=== PATIENT | female | born 1955 | race Caucasian/White ===

== ENCOUNTER 2021-02-06 14:06 | Outpatient (REF) | payer OTHER, SELFPAY | END 2021-02-06 14:07 | disposition home or self-care (01) | LOC: HO.LNP 14:06 | PROVIDERS: Visit Provider Internal Medicine | DX: Z20.822 Contact with and (suspected) exposure to COVID-19 (principal); J06.9 Acute upper respiratory infection, unspecified | CPT/HCPCS: U0003; U0005 ==

== ENCOUNTER 2025-05-26 12:06 | Outpatient (AMB) | payer MEDICARE, SELFPAY ==
[2025-05-26 12:11] VITALS: BP 130/60; PULSE 87; TEMP 37; O2SAT 97; BMI 30.1
--- NOTE | 2025-05-26 12:11 | AM.OFFWIN_ITS ---
Intake Vital Signs 05/26/25 12:11 Height 5 ft 11 in Weight 216 lb BMI 30.1 BP 130/60 Blood Pressure Location Lt brachial Position Sitting Pulse 87 Pulse Source Pulse Oximeter Temp 98.6 F Temp Source Oral Pulse Oximetry (%) 97 Oxygen Delivery Method Room Air Intake Visit Reasons: EP SOB, Cough, Rib discomfort Intake Note: pt presents with chest congestion and coughing so much that she has rib pain, body sweats, headache off/on, SOB x5 days. Covid test negative 3 days ago Patient Tobacco Use Status: Former Tobacco user Allergies codeine Allergy (Mild, Verified 05/26/25 12:14) rash HPI HPI Comments History of Present Illness Details Patient is a 69yo F who presents with cold symptoms Started last with post nasal drip and congeston Thursday she had fatigue Symptoms worsening Thursday/thursday to body aches, fatigue, cough and congestion Negative covid test at home Yesterday felt better but worse today + subjective fever/chills + congestion with cough (dry) Has tried Mucinex DM, Alkaseltzer without relief + rib pain located on R side but all ove r, worsened with cough + body aches and fatigue still No nausea/vomiting but + decreased appetite + staying hydrated but probably not as much as she should No sick close contacts PFSH Social History Patient Tobacco Use Status: Former Tobacco user Review of Systems Const Reports chills, Reports fatigue, Reports fever(s) and Reports poor appetite Eyes Denies change in vision ENT Denies dizziness, Denies otalgia, Reports nasal congestion and Reports sore throat Card Denies chest pain and Denies syncope Resp Denies change in phlegm color, Reports chest congestion, Reports cough and Reports pain with cough (R side worse, but overall ache) GI Denies abdominal pain and Denies vomiting Musc Reports myalgias Skin/Breast Denies rash Neuro Denies dizziness and Denies syncope Endo Reports fatigue Physical Exam Exam Exam: General: Non-toxic, NAD. Speaking full sentences. Skin: Warm dry throughout Eye: EOMI HENT: Airway patent. Uvula midline. No pharyngeal erythema or edema. 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 +rhinorrhea Bilateral canals clear. TM non-erythematous, non-bulging. No TM perforation or hemotympanum noted. Respiratory: No respiratory distress or stridor. No accessory muscle use. + Crackles R base. No wheeze noted bilaterally Cardiac: RRR. No murmur MSK: Full ROM extremities. Neurology: Alert. No aphasia or facial droop. Gait without abnormality Psych: Good mood and affect Vital Signs: Last Vital Signs Temp 98.6 F 05/26/25 12:11 Pulse 87 05/26/25 12:11 BP 130/60 05/26/25 12:11 Pulse Ox 97 05/26/25 12:11 Oxygen Delivery Method Room Air 05/26/25 12:11 BMI result Body Mass Index 30.1 Assessment & Plan Assessment & Plan (1) Cough: Code(s): R05.9 - Cough, unspecified Qualifiers: Cough type: acute Qualified Code(s): R05.1 - Acute cough Plan: see below (2) Pneumonia: Code(s): J18.9 - Pneumonia, unspecified organism Qualifiers: Pneumonia type: due to unspecified organism Laterality: right Lung location: lower lobe of lung Qualified Code(s): J18.9 - Pneumonia, unspecified organism Plan: Patient seen and evaluated. Vital signs stable Lungs + crackles r base Was going to obtain xray but radiology on break for another 30 minutes Pt did not want to wait or come back for imaging Will tx patient based on clinical physical exam Doxy to pharmacy to take with food avoiding alcohol Rest, tylenol/motrin for fever and body ache control Discussed worsening s/s that warrant ER evaluation Patient gave verbal understanding and had no additional questions or concerns at time of discharge All questions answered Medications: New doxycycline hyclate 100 mg PO BID 20 caps 0RF benzonatate 100 mg PO BID-TID PRN 15 caps 0RF cough Coding Level of Care Code Est Pt Level 3 (80640) Diagnoses Acute cough R05.1 Cough type: acute Pneumonia of right lower lobe due to infectious organism J18.9 Pneumonia type: due to unspecified organism Laterality: right Lung location: lower lobe of lung
--- OUTSIDE RECORDS SUMMARY | 2025-05-26 14:09 | XMS_ITS | Clinical Summary ---
Author Organization [facility] Address [address] [place] [id number] Phone Care Team Providers Care Reimbursement Manager Name Role Phone Florencio Crowell MD Primary Care Provide r Allergies Active Allergy Reactions Criticality Noted Date Comments Codeine 10/24/2019 Medications LISINOPRIL ORAL Take by mouth. Active metformin HCl (METFORMIN ORAL) Take by mouth. Active oxyCODONE 5 MG immediate release tablet Take 1 tablet (5 mg total) by mouth every 6 (six) hours as needed for pain (specific location in comments). Partial fill ok 5 tablet 10/24/2019 Active Social History Tobacco Use Types Packs/Day Years Used Date Smoking Tobacco: Former Smokeless Tobacco: Never Alcohol Use Standard Drinks/Week Comments Not Currently 0 (1 standard drink = 0.6 oz pur e alcohol) Education Answer Date Recorded Are you interested in more education? Not on lisa e 10/03/2022 Are you concerned about learning? Not on file 10/03/2022 No 10/03/2022 No 10/03/2022 Digital Access Answer Date Recorded No 11/04/2022 No 11/04/2022 Reliable internet access at home? Not on file 11/04/2022 Device with a working camera? Not on file Comments Unknown Sex and Gender Information Value Date Recorded Sex Assigned at Female 10/24/2019 10:51 AM EDT Legal Sex Female 10:39 AM EDT Gender Identity Female 10/24/2019 10:51 AM EDT Sexual Orientation Not on file Last Filed Vital Signs Vital Sign Reading Time Taken Comments Blood Pressure 152/75 10/24/2019 11:15 AM EDT Pulse 81 10/24/2019 10:46 AM EDT Temperature 36.7 C (98.1 F) 10/24/2019 10:46 AM EDT Respiratory Rate 20 10/24/2019 10:46 AM EDT Oxygen Saturation 100% 10/24/2019 11:15 AM EDT Inhaled Oxygen Concentration - - Weight 93.4 kg (206 lb) 10/24/2019 10:46 AM EDT Height 180.3 cm (5' 11 ) 10/24/2019 10:46 AM EDT Body Mass Index 28.73 10/24/2019 10:46 AM EDT Plan of Treatment Not on file Medical Devices Not on file Insurance [facility] [address] [place] [id number] [address] [place], [place] [id number] [employer] Care Teams Reimbursement Manager Relationship Specialty Start Date End Date Florencio Crowell MD PCP - General Internal Medicine 10/24/19 Additional Source Comments The information contained in this document represents components of the legal health record. It is not the complete legal health record.[facility]
--- OUTSIDE RECORDS SUMMARY | 2025-05-26 14:09 | XMS_ITS | Clinical Summary ---
Author Organization [address] Address [address] [place] [id number] Phone Care Team Providers Care Refrigeration Brazer/Solderer Name Role Phone Napoleon Orona MD Primary Care Provider Unavailabl e Allergies No known active allergies Medications HYDROmorphone (DILAUDID) 2 MG tablet Take 0.5 tablets (1 mg total) by mouth every 4 (four) hours as needed. for up to 6 doses. 6 tablet 11/23/2017 Active Social History Tobacco Use Types Packs/Day Years Used Date Smoking Tobacco: Never Smokeless Tobacco: Never Alcohol Use Standard Drinks/Week Comments No 0 (1 standard drink = 0.6 oz pur e alcohol) Comments Unknown Sex and Gender Information Value Date Recorded Sex Assigned at Not on file Legal Sex Female 7:11 PM EST Gender Identity Not on file Sexual Orientation Not on file Last Filed Vital Signs Vital Sign Reading Time Taken Comments Blood Pressure 125/77 11/23/2017 6:56 PM EDT Pulse 78 11/23/2017 6:56 PM EDT Temperature 36.3 C (97.3 F) 11/23/2017 6:56 PM EDT Respiratory Rate 17 11/23/2017 6:56 PM EDT Oxygen Saturation 100% 11/23/2017 6:56 PM EDT Inhaled Oxygen Concentration - - Weight 88.9 kg (196 lb) 11/23/2017 3:22 PM EDT Height 180.3 cm (5' 11 ) 11/23/2017 3:22 PM EDT Body Mass Index 27.34 11/23/2017 3:22 PM EDT Plan of Treatment Health Maintenance Due Date Last Done Comments HIV screening 12/26/1968 Hepatitis C screening 12/26/1973 Breast cancer screening 1995 Lipid disorder screening 1995 Colon cancer screening, Colonoscopy 12/26/2000 Diabetes screening 12/26/2000 Shingles vaccine (Shingrix) (1 of 2 - Shingrix (RZV) 2 Dose Standard Series) 12/26/2005 Pneumococcal Vaccine (50+ years) (2 of 2 - PCV) 02/10/2013 02/11/2012 Osteoporosis screening (bone density) 12/26/2020 Tetanus adult (Td q 10,TDAP once) 01/03/2021 01/03/2011, 06/19/2005 Influenza vaccine 01/06/2025 05/26/2017, , 03/29/2014, Additional history exists Covid-19 vaccine series ( - 2024- season) 2025 RSV Immunization (1 - 1-dose 75+ series) 12/26/2030 Cervical cancer screening Discontinued Meningococcal B Vaccine Aged Out No l onger eligible based on patient's age to complete this topic Meningococcal Vaccine Aged Out No shailesh yang eligible based on patient's age to complete this topic Insurance [employer] Care Teams Refrigeration Brazer/Solderer Relationship Specialty Start Date End Date Napoleon Orona MD PCP - General 11/22/17
== END 2025-05-26 12:53 | disposition home or self-care (01) ==
PROVIDERS: PCP Nurse Practitioner Family; Visit Provider Physician Assistant
DX: R05.1 Acute cough (principal); J18.9 Pneumonia, unspecified organism

== ENCOUNTER 2025-05-26 12:06 | Outpatient (REF) | payer MEDICARE, SELFPAY ==
--- OUTSIDE RECORDS SUMMARY | 2025-05-26 16:33 | XMS_ITS | Data Portability ---
Author Organization [facility] [employer] [facility], [facility] Address [address] [place] [address] Care Team Providers [facility] Director Name Role Phone DOMINGUEZ WALLS Referring Provider DOMINGUEZ WALLS Primary Care Provider Assessment Encounter Date Assessment Date Assessment LastModified by Organization Details LastModified Time 08/03/2024 08/03/2024 Assessment: Patient w some decreased rom today, decreased c/o's after STM to HS. Modified treatment per c/o's Plan: Continue to progress rom and LE strengthening as starla. STM prn Not available 08/03/2024 11:36:31 08/08/2024 08/08/2024 Assessment: Patient demonstrates increased AAROM today vs last visit-held on most strengthening today. Plan: Continue to progress rom and LE strengthening as starla-pt to call PAKrzysztof lozoya Not available 08/08/2024 10:56:00 08/10/2024 08/10/2024 Assessment: Patient demonstrates increased AAROM today vs last visit-held on most strengthening today. Plan: Continue to progress rom and LE strengthening as starla-pt to call PAKrzysztof lozoya Not available 08/09/2024 16:26:52 08/16/2024 08/16/2024 Assessment: Patient achieved ROM p/o goals, good functional status, normal stairs, goals achieved, happy w status, good understanding HEP Plan: D/c to HEP Not available 08/16/2024 10:46:52 10/13/2024 10/13/2024 PROBLEM: Status post Left total knee arthroplasty performed on 07/01/24 HPI: Patient returns today for follow-up of their total knee arthroplasty. They report they have returned to most activities of daily living. The patient has no specific concerns today in the office. They have completed outpatient physical therapy. Past family, medical, social history and review of systems has been reviewed, updated and is located in the patient s chart. EXAM: The patient ambulates with a non-antalgic gait. The surgical wound is well-healed. There is no erythema, redness, or signs of infection. Left knee range of motion 0-130 . There is no significant sub-patellar crepitus. There is expected postoperative swelling but no significant effusion. The knee is stable to varus and valgus loading at 0 and 90 without evidence of significant instability. IMAGING: Previously obtained X-rays reviewed in the office today on [facility] PACS: Weightbearing AP of both knees, lateral of the left knee, and sunrise view of both knees demonstrate; Show appropriate position of the patient's left total knee arthroplasty. Overall limb alignment is neutral. Implant position is satisfactory. Patellar tracking is midline. Bone implant interfaces are intact and no evidence of fracture or osteolysis IMPRESSION: Status post Left total knee arthroplasty PLAN: At this point, the patient is doing extremely well following their total knee arthroplasty. I encouraged them to continue a home exercise and walking program. We discussed activity modification, dental prophylaxis, and the importance of long-term follow-up. I encouraged them to return to the office periodically for routine follow-up; sooner if any issues arise. I attempted to answer all of their questions today in the office. [facility] speech recognition analyst business analysis software was used to create portions of this document. An attempt at proofreading has been made to minimize errors. Please call for corrections. [email or web address] Not available 10/13/2024 10:49:00 Plan of Treatment Reminders Order Date Submit Date Provider Last Modified By Organization Details Last Modified Time Details Appointments None record ed. Lab None record ed. Referral None record ed. Procedures None record ed. Surgeries None record ed. Imaging None record ed. Medication Orders None record ed. Patient TargetsNo targets recorded. Patient InstructionsNo instructions recorded. Reason for Referral None Reported. Results Created Date Observation Date Name Description Value Unit Range Abnormal Flag Note LastModifiedBy Organization Detail LastModifiedTime 07/14/19 25 07/14/2024 XR, knee, 3 view http:/ [email or web address] ?Encry pted=s hAaTro YD8dLq bEUv6g %2BXZw aYqtaq 0bqfl% 2Fg9IQ a4ajBk vP9nXo QUaueC m3YtLR FvZlgJ JJ8mAn HZtai3 9o0279 AC0Kqb HiBWKq vKiQtr MwF INTERFACE [facility] [address], [place], [address], 07/14/2024 15:47:25 07/14/19 25 07/14/2024 XR, knee, 3 view http:/ [email or web address] ?Encry pted=s hAaTro YD8dLq bEUv6g %2BXZw aYqtaq 0bqfl% 2Fg9IQ a4ajBk vP9nXo QUaueC m3YtLR FvZlgJ JJ8mAn HZtai3 2v3067 AC0Kqb HiBWKq vKiQtr MwF INTERFACE [facility] [address], [place], [address], 07/14/2024 15:47:27 Result Notes None recorded. Problems Name Problem SNOMED Code Status Onset Date Resolution Date Notes Provider Name and Address Organization Details Recorded Time Pain of left knee joint 858403263161 107 Active 2020 Problem Code: M25.562; Problem Code Type: ICD-10; Status: 'A'; Not Available [facility] 4 10:56:55 Pain of right knee joint 625264818109 100 Active 2020 Problem Code: M25.561; Problem Code Type: ICD-10; Status: 'A'; Not Available [facility] 4 10:56:55 Pain in right foot 876164026131 107 Active 2023 Riaz Ontiveros PA-C [address], [place], [address] , [place] - [facility] 4 13:49:13 Closed fracture of fifth metatarsa l bone 55330809 Active 2023 Riaz Ontiveros PA-C [address], [place], [address] , [facility] 4 14:19:58 Osteoarth ritis of left knee joint 820020834990 109 Active 2023 Andrea Lopez MD [address], [place], [address] , [facility] 4 06:19:01 Trochante izzy bursitis of left hip 091100284614 103 Active 2023 Andrea Lopez MD [address], [place], [address] , [facility] 4 14:58:58 Problem Notes None recorded. Procedures Surgical History Date Name Laterality Status Provider Name and Address Organization Details Recorded Time 5 29190 Therapeutic Exercise (1:1) completed Luciano Scott, PT [address], [place], [address], [facility] 08/14/2024 17:46:35 5 35116: Manual therapy completed Luciano Scott, PT [address], [place], [address], [facility] 08/14/2024 17:46:35 5 87526 Therapeutic Exercise (1:1) completed Romy Jose PTA [address], [place], [address], [facility] 08/10/2024 11:55:24 5 67049: Manual therapy completed Romy Jose PTA [address], [place], [address], [facility] 08/10/2024 11:55:16 5 37308 Therapeutic Exercise (1:1) completed Romy Jose PTA [address], [place], [address], [facility] 08/05/2024 09:15:26 5 71187: Manual therapy completed Romy Jose, NIGHT WORKER [address], [place], [address], [facility] 08/05/2024 09:15:26 5 72007 Therapeutic Exercise (1:1) completed Luciano Sampsonser, PT [address], [place], [address], [facility] 08/03/2024 11:37:05 5 18389: Manual therapy completed Luciano Sampsonser, PT [address], [place], [address], [facility] 08/03/2024 11:36:36 5 02678 Therapeutic Exercise (1:1) completed Luciano Sampsonser, PT [address], [place], [address], [facility] 07/29/2024 11:56:03 5 31986: Manual therapy completed Luciano Sampsonser, PT [address], [place], [address], [facility] 07/29/2024 11:56:03 5 32183 Therapeutic Exercise (1:1) completed Romy Jose, NIGHT WORKER [address], [place], [address], [facility] 07/29/2024 10:49:37 5 29640: Manual therapy completed Romy Jose, NIGHT WORKER [address], [place], [address], [facility] 07/28/2024 18:32:46 5 07203 Therapeutic Exercise (1:1) completed Romy Jose, NIGHT WORKER [address], [place], [address], [facility] 07/26/2024 18:10:48 5 74638: Manual therapy completed Romy Jose, NIGHT WORKER [address], [place], [address], [facility] 07/26/2024 18:10:48 5 64186 Therapeutic Exercise (1:1) completed Romy Jose, NIGHT WORKER [address], [place], [address], [facility] 07/20/2024 12:08:43 5 92140: Manual therapy completed Romy Jose, NIGHT WORKER [address], [place], [address], [facility] 07/19/2024 18:08:42 5 36373 Therapeutic Exercise (1:1) completed Romy Jose, NIGHT WORKER [address], [place], [address], [facility] 07/18/2024 11:44:04 5 21900: Manual therapy completed Romy Jose, NIGHT WORKER [address], [place], [address], [facility] 07/18/2024 11:43:59 5 32288 Therapeutic Exercise (1:1) completed Luciano Scott, PT [address], [place], [address], [facility] 07/10/2024 11:38:13 5 47526: Low complexity PT Eval completed Luciano Scott, PT [address], [place], [address], [facility] 07/10/2024 11:38:18 5 G8417 BMI Above Upper Parameters, F/U Documented completed Luciano Scott, PT [address], [place], [address], [facility] 07/11/2024 11:06:52 5 G8427 Current Medication Documented completed Luciano Scott, PT [address], [place], [address], [facility] 07/11/2024 11:07:00 4 Sports Knee 4&1 completed Satnam Canela PA-C [address], [place], [address], [facility] 03/15/2024 21:44:01 4 Knee Kenalog 40mg 2cc Injection, L/R completed Satnam Canela PA-C [address], [place], [address], [facility] 10/20/2023 20:59:53 Imaging Results None recorded. Procedure Notes None recorded. Medical Equipment None Reported. Allergies Allergen ID Allergen Name Allergen Category Reaction Reaction Severity Criticality Documentation Date Start Date Code Code System Note Provider Name and Address Organization Details Recorded Time 836979 codeine medicatio n Not available Not available Not available 12/01/20232023 2670 RxNorm Not Available [facility] 4 09:09:34 78079 Lyrica medicatio n Not available Not available Not available 08/10/20232020 60488 1 RxNorm Not Available [facility] 4 11:38:58 48577 acetamino phen / codeine medicatio n Not available Not available Not available 08/10/20232022 00711 9 RxNorm Lindsey Yan PA-C [address], [place], [address], [facility] 5 16:10:42 83217 lactose Not available Not available Not available Not available 08/10/20232020 6211 RxNorm Not Available [facility] 4 11:38:58 Medications Name Sig Start Date Stop Date Status Note LastModified by Organization Details LastModified Time celecoxib 200 mg capsule TAKE 1 CAPSULE BY MOUTH EVERY DAY 10/13 completed Not Available Not Available Not Available amoxicillin 500 mg capsule TAKE 4 CAPSULES BY MOUTH 1 HOUR BEFORE APPOINTME NT 10/13 completed Not Available Not Available Not Available atorvastati n 20 mg tablet TAKE 1 TABLET BY MOUTH EVERY DAY active Not Available Not Available No t Available tizanidine 4 mg tablet TAKE 1 TABLET EVERY 8 HOURS BY ORAL ROUTE NEEDED, FOR SPASMS. 10/13 completed Not Available Not Available Not Available glipizide ER 10 mg tablet, extended release 24 hr TAKE 1 TABLET BY MOUTH EVERY DAY IN THE MORNING AFTER STOPPING TRULICITY 10/13 completed Not Available Not Available Not Available lisinopril 20 mg tablet TAKE 1 TABLET DAILY active Not Available Not Available No t Available sumatriptan 50 mg tablet TAKE 1 TABLET AT ONSET OF HEADACHE (MAY REPEAT IN 2 HOURS IF RESPONSE UNSATISFA CTORY) NEEDED active Not Available Not Available No t Available amlodipine 5 mg tablet TAKE 1 TABLET DAILY active Not Available Not Available No t Available aspirin 81 mg tablet,ximena yed release active Not Available Not Available Not Available tramadol 50 mg tablet TAKE 1 TABLET EVERY 6 HOURS BY ORAL ROUTE AFTER MEAL(S). 10/13 completed Not Available Not Available Not Available pantoprazol e 20 mg tablet,ximena yed release TAKE 1 TABLET BY MOUTH DAILY. active Not Available Not Available No t Available aspirin 325 mg tablet,ximena yed release TAKE 1 TABLET BY MOUTH TWICE A DAY AFTER SURGERY 10/13 completed Not Available Not Available Not Available pantoprazol e 40 mg tablet,ximena yed release TAKE 1 TABLET BY MOUTH EVERY DAY PRE-OP START DAY OF SURGERY 10/13 completed Not Available Not Available Not Available pseudoephed rine-guaife nesin ER 80-700 mg tablet,exte nded release 1/2 TO 1 TAB EVERY 12 HRS PRN PAIN.DO NOT DRIVE WHILE ON THIS MEDICATIO N 09/23 completed Statu s: 'Disc ontin ued'; Not Available Not Available Not Available hydroxyzine HCl 25 mg tablet TAKE 1 TABLET BY MOUTH TWICE A DAY NEEDED FOR ANXIETY active Not Available Not Available No t Available pioglitazon e 30 mg tablet TAKE 1 TABLET BY MOUTH EVERY DAY active Not Available Not Available No t Available celecoxib 100 mg capsule TAKE 1 CAPSULE BY MOUTH EVERY DAY NEEDED 2024 active Not Available Not Available Not Avai lable metformin ER 500 mg tablet,exte nded release 24 hr TAKE 2 TABLETS TWICE A DAY active Not Available Not Available No t Available clotrimazol e 1 % topical cream APPLY TO AFFECTED AREA TWICE A DAY FOR 7 DAYS 10/13 completed Not Available Not Available Not Available amoxicillin 875 mg-felicinao pierce clavulanate 125 mg tablet TAKE 1 TABLET BY MOUTH 2 TIMES A DAY FOR 7 DAYS 10/13 completed Not Available Not Available Not Available oxycodone 5 mg tablet Take 1 tablet 4 times a day by oral route for 7 days, for severe pain. 10/13 completed Not Available Not Available Not Available duloxetine 30 mg capsule,del ayed release TAKE 1 CAPSULE BY MOUTH DAILY AT SUPPER, TAKE IN ADDITION TO 60MG IN THE MORNING 10/13 completed Not Available Not Available Not Available duloxetine 60 mg capsule,del ayed release TAKE 1 CAPSULE BY MOUTH DAILY IN AM, TAKE IN ADDITION TO 30MG IN THE EVENING active Not Available Not Available No t Available pantoprazol e 10/13 completed Not Available Not Available Not Available diclofenac 1 % topical gel APPLY 1 TO 3 GRAMS TOPICALLY TO THE AFFECTED AREA 3 TO 4 TIMES DAILY FOR PAIN DIRECTED. 10/13 completed Not Available Not Available Not Available oxycodone HCl-oxycodo ne-ASA Take one tablet every 6 hours as needed for painDO NOT DRIVE WHILE TAKING THIS MEDICATIO N 10/13 completed Statu s: 'Curr ent'; Not Available Not Available Not Available Gavilax 17 gram/dose oral powder TAKE 17 GRAMS MIXED WITH WATER AT BEDTIME 10/13 completed Not Available Not Available Not Available Trulicity 1.5 mg/0.5 mL subcutaneou s pen injector INJECT 1 PEN SUBCUTANE OUSLY WEEKLY 10/13 completed Not Available Not Available Not Available Ozempic 1 mg/dose (4 mg/3 mL) subcutaneou s pen injector INJECT 1 MG SUBCUTANE OUSLY EVERY WEEK,X90 DAYS active Not Available Not Available No t Available Ozempic 0.25 mg or 0.5 mg (2 mg/3 mL) subcutaneou s pen injector INJECT 0.5 MG SUBCUTANE OUSLY EVERY 7 DAYS,X30 DAYS 10/13 completed Not Available Not Available Not Available Vitals Date Recorded Body height Body mass index (BMI) Body weight Provider Name and Address Organization Details Last Updated DateTime 10/13/2024 177.8 cm 32.9 kg/m2 541148.65 g Krishna Pelaezfritz [place] - [facility] 10/13/2024 10:39:41 Social History None recorded. Functional Status None recorded. Mental Status None recorded. Family History Nothing Reported. Medical History Condition Response Diabetes Y Anxiety/Depression Y Bleeding Disorder Y Arthritis Y Sleep Apnea Y Gastrointestinal Disease Y Headaches Y Hypertension Y Cholesterol Y Gynecological HistoryNo gynecological history recorded. Obstetrics History GPAL:G 0 P 0 0 0 0 Past Encounters Encounter ID Performer Location Encounter Start Date Encounter Closed Date Diagnosis/Indication Diagnosis SNOMED-CT Code Diagnosis ICD10 Code Diagnosis IMO Codes Diagnosis Note [id number] MD Woo Pascual [address] [place] [address] 08/19/2023 14:22:18 08/25/2023 10:06:47 Pain of right knee joint 2508009256 76434 M25.561 History of total knee arthroplasty 6231931646 105 Z96.766 [id number] ELISABETH Haque [address] [place] [address] 10/21/2023 08:01:16 11/13/2023 08:59:45 Osteoarthritis of left knee joint 6615035718 42960 M17.12 [id number] ELISABETH Haque [address] [place] [place] [address] 11/06/2023 09:26:59 11/06/2023 10:27:38 Osteoarthritis of left knee joint 4108310477 30020 M17.12 [id number] Riaz Ontiveros PA-C [place] [address] [place] [address] 11/20/2023 13:26:13 12/11/2023 12:24:55 Pain in right foot 2222824123 50884 M79.671 Closed fra cture of fifth metatarsal bone 11431045 S92.351A [id number] ELISABETH Haque [address] [place] [address] 03/16/2024 08:13:16 03/16/2024 16:07:52 Osteoarthritis of left knee joint 0311525726 33877 M17.12 [id number] Andrea Lopez MD [facility] [address] [place] [address] 04/21/2024 13:55:52 05/17/2024 10:32:16 Osteoarthritis of left knee joint 9917811411 43657 M17.12 3308492 Pain of hip region 03510 002 M25.552 225349 Trochanter ic bursitis of left hip 9244826475 03866 M70.62 5366763 [id number] Ashwin Eaton, [employer] PROFESSOR [facility] [address] [place] [address] 06/23/2024 10:49:17 07/01/2024 04:03:40 [id number] Luciano Scott, PT [facility] [address] [place] [address] 07/11/2024 10:03:54 07/11/2024 11:13:46 History of left total knee replacement 7596794475 531440 Z96.652 Z47.1 [id number] Lindsey Yan PA-C [facility] [address] [place] [address] 07/14/2024 15:29:20 08/02/2024 16:08:46 History of total knee arthroplasty 8637984167 105 Z96.652 75902486 [id number] Romy Jose, NIGHT WORKER [facility] [address] [place] [address] 07/18/2024 10:53:18 07/18/2024 12:21:10 History of left total knee replacement 4231352513 352261 Z96.652 Z47.1 [id number] Romy Jose, NIGHT WORKER [facility] [address] [place] [address] 07/20/2024 10:48:11 07/20/2024 11:42:13 History of left total knee replacement 2272857560 429590 Z96.652 Z47.1 [id number] Romy Jose, NIGHT WORKER [facility] [address] [place] [address] 07/27/2024 09:24:06 07/27/2024 10:02:01 History of left total knee replacement 7753157271 853834 Z96.652 Z47.1 [id number] Lindsey Yan PA-C [facility] [address] [place] [address] 07/28/2024 13:31:41 08/12/2024 07:41:12 History of total knee arthroplasty 6898841072 105 Z96.652 36803143 [id number] Romy Jose, NIGHT WORKER [facility] [address] [place] [address] 07/29/2024 09:23:01 07/29/2024 10:26:39 History of left total knee replacement 8317214022 534268 Z96.652 Z47.1 [id number] Luciano Scott, PT [facility] [address] [place] [address] 08/01/2024 09:48:52 08/01/2024 11:15:47 History of left total knee replacement 1865781551 471832 Z96.652 Z47.1 [id number] Luciano Sampsonser, PT [facility] [address] [place] [address] 08/03/2024 09:52:43 08/03/2024 10:59:37 History of left total knee replacement 8648717037 797092 Z96.652 Z47.1 [id number] Romy Jose, NIGHT WORKER [facility] [address] [place] [address] 08/08/2024 09:43:11 08/08/2024 11:00:37 History of left total knee replacement 3693634943 438557 Z96.652 Z47.1 [id number] Romy Jose, NIGHT WORKER [facility] [address] [place] [address] 08/10/2024 09:57:25 08/10/2024 11:23:17 History of left total knee replacement 0346035152 221265 Z96.652 Z47.1 [id number] Luciano Sampsonser, PT [facility] [address] [place] [address] 08/16/2024 09:24:13 08/16/2024 10:07:49 History of left total knee replacement 9332568983 097813 Z96.652 Z47.1 [id number] MD [facility] [address] [place] [address] 10/13/2024 10:31:05 10/19/2024 09:33:53 History of left total knee replacement 7465852500 775248 Z96.652 [id number] Health Concerns Section Related Observation LastModified by Organization Detai ls LastModified Time None Recorded Concern Status LastModified by Organization Details LastModified Time None Recorded Advance Directives Directive None Recorded Payers Insurance Date Sequence Insurance Name Policy Number Policy Estrada Covered Member ID Estrada Member ID Guarantor Name 10/19/2024 2 [place] [id number] Rosy C Augusto [id number] Rosy G Augusto 10/13/2024 1 [place] [facility] Rosy C Augusto [id number] Rosy G Augusto Notes Date Note Type Note Provider Name and Address Organization Details Recorded Time 08/03/2024 text/html Patient states 3/10 pain. Stiff today, c/o med HS pain, increased pain today Luciano Sampsonser, PT [address], [place], [address], [facility] 08/03/2024 11:37:23 08/08/2024 text/html Patient states increased pain to inside of knee-difficulty sleeping at night. Romy Jose NIGHT WORKER [address], [place], [address], [facility] 08/08/2024 10:56:28 08/10/2024 text/html Patient states increased pain to inside of knee-difficulty sleeping at night. Romy Jose, NIGHT WORKER [address], [place], [address], [facility] 08/10/2024 11:55:47 08/16/2024 text/html Patient states no pain, better sleep Luciano Scott, PT [address], [place], [address], [facility] - [facility] 08/16/2024 10:48:07 OBGyn Episode No OBEpisode recorded.
[2025-05-26 17:52] LABS: Resp Syncy Virus RNA Qual PCR NEGATIVE (Negative); SARS COV2 PCR INHOUSE NEGATIVE (Negative)
== END 2025-05-26 12:07 | disposition home or self-care (01) ==
LOC: HO.LNP 12:06
PROVIDERS: PCP Nurse Practitioner Family; Visit Provider Physician Assistant
DX: R05.1 Acute cough (principal); J18.9 Pneumonia, unspecified organism; Z87.891 Personal history of nicotine dependence
CPT/HCPCS: 87637; 99212